=== PATIENT | female | born 1975 | race Caucasian/White ===

== ENCOUNTER 2017-02-15 23:57 | Emergency (ER) | payer BC ==
--- NOTE | ~2017-02-15 | EKG ---
PATIENT: FIONA CASTELAN UNIT #: [id number] Ventricular Rate: 87 BPM Atrial Rate: 87 BPM P-R Interval: 138 ms QRS Duration: 92 ms Q-T Interval: 384 ms QTC Calculation(Bezet): 462 ms P [place]: 64 degrees Calculated R [place]: 41 degrees Calculated T [place]: 36 degrees Diagnosis Line: Normal sinus rhythm Nonspecific ST abnormality Diagnosis Line: Normal ECG Diagnosis Line: No previous ECGs available Diagnosis Line: Confirmed by ARI DAVE MD ([id number]) on 02/19/2017 Diagnosis Line: 3:53:43 PM INTERPRETING MD: TENZIN HUFFMAN
--- NOTE | ~2017-02-15 | CR72 ---
[facility] A Service of [facility] & [facility] RADIOLOGY TEXT RESULTS PATIENT: FIONA CASTELAN LOCATION: [facility] : 79 UNIT #: [id number] AGE: [address]: Alejo Moran MD SEX: F ORDER DR: [id number] [facility] [address] [place], [place] [address] [id number] E MR#: [id number] Acc #: [id number] NAME: FIONA CASTELAN. : 1975 SEX: F STUDY DATE/TIME: 02/15/2017 23:01 UNIT: [facility] ROOM: STUDY DESCRIPTION: CR Chest Single View Portable Attending Physician: Alejo Moran M.D. Ordering Physician: Ed Elmer Romero M.D. Primary Care Physician: Hyacinth Mckinley M.D. MEDICAL IMAGING REPORT This report is preliminary unless electronic signature is present EXAM AP portable chest date 02/15/2017. HISTORY Left side chest pain and shortness of breath which began 2 days ago. COMPARISON PA and lateral chest radiograph 05/07/2016. FINDINGS Clear lungs. Normal heart size. No pleural effusion or pneumothorax. Surgical changes of the thoracolumbar junction. Presumed cholecystectomy. IMPRESSION No acute cardiopulmonary findings. No significant change compared to 05/07/2016. Dictated by... Angelica Chandra M.D. THIS IS AN ELECTRONICALLY VERIFIED REPORT Angelica Chandra M.D. at 02/16/2017 10:[address] [facility] TD: 02/16/2017 01:34 JOB #: [id number] MEDICAL IMAGING REPORT Page 1 of 1 COPY
--- NOTE | ~2017-02-15 | EKG ---
PATIENT: FIONA CASTELAN UNIT #: [id number] Ventricular Rate: 87 BPM Atrial Rate: 87 BPM P-R Interval: 138 ms QRS Duration: 92 ms Q-T Interval: 384 ms QTC Calculation(Bezet): 462 ms P [place]: 64 degrees Calculated R [place]: 41 degrees Calculated T [place]: 36 degrees Diagnosis Line: Normal sinus rhythm Nonspecific ST abnormality Diagnosis Line: Borderline ECG Diagnosis Line: No previous ECGs available Diagnosis Line: Reconfirmed by ARI DAVE MD ([id number]) on 02/19/2017 Diagnosis Line: 3:54:26 PM INTERPRETING MD: TENZIN HUFFMAN
[2017-02-15 23:07] LABS: BASOPHIL# 0.1 X10e3 (0-0.3); BASOPHIL% 0.9 % (0-2.5); EOSINOPHIL# 0.1 X10e3 (0-0.7); EOSINOPHIL% 1.2 % (0.0-7.0); HEMATOCRIT 45.1 % (35.0-45.0); HEMOGLOBIN 14.9 gm/dL (12.0-16.0); LYMPHOCYTE# 2.1 X10e3 (1.0-3.5); LYMPHOCYTE% 20.2 % (17.0-45.0); MEAN CELL VOLUME 88.2 FL (83-96); MEAN CORPUSCULAR HEMOGLOBIN 29.1 PG (28-34); MEAN CORPUSCULAR HGB CONC 33.1 g/dL (30-36); MONOCYTE# 0.8 X10e3 (0-1.0); MONOCYTE% 7.4 % (3.0-12.0); NEUTROPHIL# 7.4 X10e3 (1.5-7.1); NEUTROPHIL% 70.3 % (40-75); PLATELET COUNT 245 X10e3 (140-420); RED BLOOD COUNT 5.12 X10e (3.90-5.30); WHITE BLOOD COUNT 10.5 X10e3 (4.0-10.5)
[2017-02-15 23:08] LABS: DIFF IND NO
[2017-02-15 23:28] LABS: POC - CKMB <1.0 ng/mL (0.0-7.9); POC - TROPONIN <0.05 ng/mL (<=0.05)
[2017-02-15 23:39] LABS: ALBUMIN SERUM 4.6 g/dL (3.5-5.0); BILIRUBIN,TOTAL 0.4 mg/dL (0.2-2.0); BUN/CREATININE RATIO 21.25; CALCIUM SERUM 9.1 mg/dL (8.4-10.2); CREATININE SERUM 0.8 mg/dL (0.6-1.4); GLOM FILT RATE Estimated 92.3 mL/min (>60); POTASSIUM 3.3 mmol/L (3.5-5.1)
[2017-02-15 23:41] LABS: BILIRUBIN, DIRECT 0.1 mg/dL (0.0-0.2); BILIRUBIN,INDIRECT 0.3 mg/dL (0.0-0.9)
[~2017-02-15 23:57] MED LIST: FLEXERIL PO; NAPROSYN500 MG PO; NORCO 10-325 TA1 TAB PO; PHENERGAN25 MG PO
[2017-02-16 00:57] LABS: POC - CKMB <1.0 ng/mL (0.0-7.9); POC - TROPONIN <0.05 ng/mL (<=0.05)
== END 2017-02-16 01:22 | disposition home or self-care (01) ==
LOC: CED 23:57
PROVIDERS: Emergency Medicine
DX: R07.89 Other chest pain (principal); F41.9 Anxiety disorder, unspecified; G43.909 Migraine, unspecified, not intractable, without status migrainosus; Z90.49 Acquired absence of other specified parts of digestive tract; Z98.51 Tubal ligation status; Z79.899 Other long term (current) drug therapy
CPT/HCPCS: 36415; 71010; 80048; 80076; 82553; 84484; 85025; 93005; 99284

== ENCOUNTER 2017-03-25 06:16 | Emergency (ER) | payer BC ==
--- NOTE | ~2017-03-25 | CT2 ---
[facility] A Service of [facility] & [facility] RADIOLOGY TEXT RESULTS PATIENT: FIONA CASTELAN LOCATION: [facility] : 79 UNIT #: [id number] AGE: [address]: Claudy Woody MD SEX: F ORDER DR: [id number] [facility] [address] [place], [place] [address] [id number] E MR#: [id number] Acc #: [id number] NAME: FIONA CASTELAN : 1975 SEX: F STUDY DATE/TIME: 03/25/2017 8:16 UNIT: [facility] ROOM: STUDY DESCRIPTION: CT Abd and Pelv W Cont Attending Physician: Claudy Woody M.D. Ordering Physician: Claudy Woody M.D. Primary Care Physician: Hyacinth Mckinley M.D. MEDICAL IMAGING REPORT This report is preliminary unless electronic signature is present EXAM CT of the abdomen and pelvis with contrast INDICATION Back surgery 2 weeks ago. Patient now reports right upper quadrant pain starting today. There is also concern for possible abscess given history of recent back surgery. TECHNIQUE Axial CT images were obtained from the dome of the diaphragm through the symphysis pubis following administration of intravenous contrast material. This CT examination was performed with one or more of the following radiation dose reduction techniques: automatic exposure control, adjustment of mA and/or kV according to patient size, and iterative reconstruction. FINDINGS Images through the lung bases do not demonstrate any acute abnormalities. Stomach and proximal small bowel are within normal limits. Gallbladder is surgically absent. Liver is unremarkable. Spleen, pancreas are within normal limits as are the adrenal glands. A few tiny low-attenuation lesions are seen within the left kidney which are too small to accurately characterize but which may reflect cysts. No free fluid or adenopathy is seen within the abdomen. Ovaries appear unremarkable. Patient does have a heterogeneous appearance to the uterus, incompletely evaluated on the study. Potentially, it could reflect the presence of some underlying fibroids. Again there is no evidence of mechanical bowel obstruction. No intraabdominal or intrapelvic abscess is seen. Review of bony windows demonstrate changes of posterior lumbar spinal fusion at T12-L1. Certainly no discrete drainable abscess is seen on these images. [facility] A Service of [facility] & [facility] RADIOLOGY TEXT RESULTS PATIENT: FIONA CASTELAN LOCATION: [facility] : 79 UNIT #: [id number] AGE: [address]: Claudy Woody MD SEX: F ORDER DR: 1. No acute intraabdominal or intrapelvic process is seen to account for the patient's symptomatology. 2. Gallbladder is surgically absent. 3. Somewhat heterogeneous appearance to the uterus is nonspecific and could reflect the presence of some underlying fibroids. Dictated by... Asmita Saleh M.D. THIS IS AN ELECTRONICALLY VERIFIED REPORT Asmita Saleh M.D. at 03/26/2017 10:49 AM JOSE DE JESUS/rashid TD: 03/25/2017 14:22 JOB #: [id number] MEDICAL IMAGING REPORT Page 1 of 1 COPY
--- NOTE | ~2017-03-25 | CR72 ---
[facility] A Service of [facility] & [facility] RADIOLOGY TEXT RESULTS PATIENT: FIONA CASTELAN LOCATION: [facility] : 79 UNIT #: [id number] AGE: [address]: Claudy Woody MD SEX: F ORDER DR: [id number] [facility] [address] [place], [place] [address] [id number] E MR#: [id number] Acc #: [id number] NAME: FIONA CASTELAN : 1975 SEX: F STUDY DATE/TIME: 03/25/2017 6:42 UNIT: [facility] ROOM: STUDY DESCRIPTION: CR Chest Single View Portable Attending Physician: Claudy Woody M.D. Ordering Physician: Claudy Woody M.D. Primary Care Physician: Hyacinth Mckinley M.D. MEDICAL IMAGING REPORT This report is preliminary unless electronic signature is present EXAM Portable chest INDICATION Fever, back pain and chest pain starting today. This patient had back surgery 2 weeks ago. FINDINGS Heart size is within normal limits for portable technique. No pneumothorax, pleural effusion or acute infiltrate is identified. Postsurgical changes are seen at the thoracolumbar junction. Dictated by... Asmita Saleh M.D. THIS IS AN ELECTRONICALLY VERIFIED REPORT Asmita Saleh M.D. at 03/26/2017 10:48 AM AFF/ea TD: 03/25/2017 12:37 JOB #: [id number] MEDICAL IMAGING REPORT Page 1 of 1 COPY
--- NOTE | ~2017-03-25 | CT96 ---
[facility] A Service of [facility] RADIOLOGY TEXT RESULTS PATIENT: FIONA CASTELAN LOCATION: [facility] : 79 UNIT #: [id number] AGE: [address]: Claudy Woody MD SEX: F ORDER DR: [id number] [facility] [address] [place], [place] [address] [id number] E MR#: [id number] Acc #: [id number] NAME: FIONA CASTELAN : 1975 SEX: F STUDY DATE/TIME: 03/25/2017 7:54 UNIT: [facility] ROOM: STUDY DESCRIPTION: CT Lumbar Spine W Cont Attending Physician: Claudy Woody M.D. Ordering Physician: Claudy Woody M.D. Primary Care Physician: Hyacinth Mckinley M.D. MEDICAL IMAGING REPORT This report is preliminary unless electronic signature is present EXAM CT of the lumbar spine with contrast media HISTORY Back surgery 2 weeks ago. Back pain to the right of incision since 03/24/2017. Right upper quadrant pain today. TECHNIQUE Axial imaging of the lumbar spine was performed and is compared to the patient's CT of the abdomen and pelvis obtained at the same time. This CT examination was performed with one or more of the following radiation dose reduction techniques: automatic exposure control, adjustment of mA and/or kV according to patient size, and iterative reconstruction. FINDINGS The patient has had a fusion at the T12-L1 level with pedicle screws posteriorly and intervertebral disc fusion anteriorly. Pedicle screws are in appropriate position. The prosthesis in the disc space appears in appropriate position. Just below the disc space, there is bone identified extending into the canal posteriorly. This narrows the canal by about 3 mm. The patient has been decompressed posteriorly. There is no evidence of a drainable fluid collection. There is mild soft tissue swelling in the subcutaneous fat over the surgical site. No paravertebral soft tissue masses are identified. CONCLUSION 1. No evidence of abscess or drainable fluid collection. 2. Postop changes of fusion at T12-L1. Small bony protuberance of the disc space at L1 which causes about 3 mm of narrowing of the thecal sac. The patient has been apparently posteriorly decompressed. There is no abscess identified. [facility]. [facility] A Service of [facility] & [facility] RADIOLOGY TEXT RESULTS PATIENT: FIONA CASTELAN LOCATION: [facility] : 79 UNIT #: [id number] AGE: [address]: Claudy Woody MD SEX: F ORDER DR: Dictated by... Timmy Jha M.D. THIS IS AN ELECTRONICALLY VERIFIED REPORT Timmy Jha M.D. at 03/26/2017 9:16 AM NICOLÁS/rashid TD: 03/25/2017 14:47 JOB #: [id number] MEDICAL IMAGING REPORT Page 1 of 1 COPY
--- NOTE | ~2017-03-25 | EKG ---
PATIENT: FIONA CASTELAN UNIT #: [id number] Ventricular Rate: 120 BPM Atrial Rate: 120 BPM P-R Interval: 142 ms QRS Duration: 92 ms Q-T Interval: 322 ms QTC Calculation(Bezet): 455 ms P [place]: 45 degrees Calculated R [place]: 5 degrees Calculated T [place]: 22 degrees Diagnosis Line: Sinus tachycardia Diagnosis Line: Otherwise normal ECG Diagnosis Line: When compared with ECG of 15-FEB-2017 22:48, Diagnosis Line: No significant change was found Diagnosis Line: Confirmed by LAUREANO OMALLEY MD ([id number]) on 03/26/2017 Diagnosis Line: 4:37:21 PM INTERPRETING MD: SHAHRAM HUFFMAN
[2017-03-25 07:21] LABS: POC - CKMB <1.0 ng/mL (0.0-7.9); POC - TROPONIN <0.05 ng/mL (<=0.05)
[2017-03-25 07:28] LABS: URINE SOURCE CLEAN CATCH
[2017-03-25 07:41] LABS: BASOPHIL% 0.4 % (0-2.5); EOSINOPHIL# 0.1 X10e3 (0-0.7); EOSINOPHIL% 0.8 % (0.0-7.0); HEMOGLOBIN 13.7 gm/dL (12.0-16.0); LYMPHOCYTE# 0.6 X10e3 (1.0-3.5); MEAN CELL VOLUME 88.7 FL (83-96); MEAN CORPUSCULAR HEMOGLOBIN 29.6 PG (28-34); MEAN CORPUSCULAR HGB CONC 33.4 g/dL (30-36); MEAN PLATELET VOLUME 8.5 FL (6.5-11.5); MONOCYTE# 0.2 X10e3 (0-1.0); MONOCYTE% 2.1 % (3.0-12.0); NEUTROPHIL# 6.7 X10e3 (1.5-7.1); NEUTROPHIL% 88.7 % (40-75); PLATELET COUNT 186 X10e3 (140-420); RED BLOOD COUNT 4.63 X10e (3.90-5.30); RED CELL DISTRIBUTION WIDTH 13.4 % (11.0-15.5); WHITE BLOOD COUNT 7.6 X10e3 (4.0-10.5)
[2017-03-25 07:42] LABS: DIFF IND NO
[2017-03-25 07:48] LABS: URINE APPEARANCE CLEAR; URINE BILIRUBIN NEG (NEG); URINE BLOOD 1+ (NEG); URINE COLOR YELLOW; URINE GLUCOSE NEG (NEG); URINE KETONE NEG (NEG); URINE LEUKOCYTE ESTERASE NEG (NEG); URINE NITRATE NEG (NEG); URINE PROTEIN NEG (NEG); URINE UROBILINOGEN 0.2 MG/DL (NEG)
[2017-03-25] MEDS ORDERED: ZANAFLEX PO (08:00)
[2017-03-25] MEDS ORDERED: LORTAB 7.5-3251 EACH PO (08:00)
[2017-03-25 08:03] LABS: CULTURE INDICATED? NO
[2017-03-25 08:11] LABS: BILIRUBIN, DIRECT 0.1 mg/dL (0.0-0.2); BILIRUBIN,INDIRECT 0.4 mg/dL (0.0-0.9); BILIRUBIN,TOTAL 0.5 mg/dL (0.2-2.0); BUN/CREATININE RATIO 21.11; CALCIUM SERUM 8.8 mg/dL (8.4-10.2); CREATININE SERUM 0.9 mg/dL (0.6-1.4); POTASSIUM 3.6 mmol/L (3.5-5.1); PROTEIN TOTAL SERUM 7.1 g/dL (6.0-8.3)
[2017-03-25 08:16] LABS: INR 0.9; PARTIAL THROMBOPLASTIN TIME 21.7 SECONDS (23.5-31.3); PROTHROMBIN TIME (PATIENT) 9.8 SECONDS (9.6-11.5)
[2017-03-25 14:06] LABS: POC - CREATININE 0.62 mg/dL (0.44-1.03); POC - GFR >60.0 mL/min (>60)
== END 2017-03-25 10:50 | disposition home or self-care (01) ==
LOC: CED 06:16
PROVIDERS: Emergency Medicine
DX: A41.9 Sepsis, unspecified organism (principal); M54.9 Dorsalgia, unspecified; Z98.890 Other specified postprocedural states; Z90.49 Acquired absence of other specified parts of digestive tract; Z79.899 Other long term (current) drug therapy
CPT/HCPCS: 36415; 71010; 72132; 74177; 80048; 80076; 81003; 82553; 82565; 83605; 83690; 84484; 84703; 85025; 85610; 85730; 87040; 87077; 87186; 93005; 99291; J0696; J1170; J3370; Q9967